=== PATIENT | female | born 1995 | race Caucasian/White ===

== ENCOUNTER 2018-02-14 14:12 | Emergency (ER) | payer OTHER ==
[2018-02-14 14:25] VITALS: Ht 160 cm
[2018-02-14 16:30] LABS: BASOPHIL % 0.2 % (0-2); PLATELET COUNT 234 x10^3mcL (130-400)
[2018-02-14 17:51] LABS: microscopic required? YES; urine erythrocyte 3+ (NEGATIVE)
[2018-02-14 18:11] VITALS: BP 129/80
== END 2018-02-14 18:11 | disposition home or self-care (01) ==
LOC: ED 14:12
PROVIDERS: Emergency Medicine
DX: O20.0 Threatened abortion (principal)
CPT/HCPCS: 36415

== ENCOUNTER 2018-08-30 08:24 | Emergency (ER) | payer OTHER ==
[~2018-08-30] VITALS: Ht 157.5 cm; Wt 87.1 kg
[2018-08-30 08:32] VITALS: Ht 157.5 cm; Wt 87.1 kg
[2018-08-30 11:03] VITALS: BP 145/71
== END 2018-08-30 11:03 | disposition home or self-care (01) ==
LOC: ED 08:24
DX: O99.513 Diseases of the respiratory system complicating pregnancy, third trimester (principal); J02.9 Acute pharyngitis, unspecified; Z3A.38 38 weeks gestation of pregnancy
CPT/HCPCS: 86308